=== PATIENT | female | born 1990 | race Caucasian/White ===

== ENCOUNTER 2016-08-25 19:21 | Emergency (ER) | payer OTHER ==
[~2016-08-25] VITALS: Ht 154.9 cm; Wt 70.3 kg
--- NOTE | ~2016-08-25 | EKG ---
[place] [address] [facility] [place] [employer] [place] [address] ELECTROCARDIOGRAM REPORT Name: TAI WOLFE Room #: [facility]#: [id number] Admission: 08/25/16 Attend Phys: Discharge: 08/25/16 Date of : 89 Report #: [id number] THIS REPORT FOR: //name// [facility] ED Test Date: 2016-08-25 Test Time: 19:41:18 Pat Name: TAI WOLFE Department: Room: Gender: F [employer]: LULU : 1990 Requested By: Albania Galvan Order Number: [id number] MD: Khang Matamoros Measurements Intervals [place] Rate: 73 P: 44 CA: 135 QRS: 60 QRSD: 104 T: 43 QT: 412 QTc: 454 Interpretive Statements Sinus rhythm RSR' in V1 or V2, right VCD No previous ECG available for comparison Electronically Signed On 08-26-2016 7:23:48 CDT by Khang Matamoros [email or web address] <ELECTRONICALLY SIGNED> By: Khang Matamoros MD, [facility] 08/26/16 0723 194 40 Khang Matamoros MD, FACC /EPI
[2016-08-25 20:51] LABS: ABSOLUTE NEUTROPHILS 4.7 thou/uL (1.4-8.2); BASOPHILS 0.7 % (0.0-2.0); EOSINOPHILS 1.1 % (0.0-3.0); HEMATOCRIT 41.6 % (37.0-47.0); HEMOGLOBIN 14.5 gm/dL (12.0-15.0); LYMPHOCYTES 39.8 % (24.0-44.0); MCH 31.2 pg (26.0-34.0); MCHC 34.9 g/dL (28.0-37.0); MCV 89.4 fL (80.0-100.0); MONOCYTES 7.5 % (1.0-8.0); PLATELET COUNT 293 thou/uL (150-400); POLYS 50.9 % (36.0-66.0); RBC 4.65 mil/uL (4.20-5.00); RDW 12.5 % (10.5-14.5); WBC 9.2 thou/uL (4.0-11.0)
[2016-08-25 20:58] LABS: MANUAL DIFF NO
[2016-08-25 20:59] LABS: ANION GAP 12 mmol/L (7-16); BUN 11 mg/dL (7-18); CHLORIDE 103 mmol/L (98-107); CO2 23 mmol/L (21-32); CREATININE 0.9 mg/dL (0.6-1.0); GLUCOSE 113 mg/dL (74-106); POTASSIUM 3.5 mmol/L (3.5-5.1); SODIUM 138 mmol/L (136-145)
[2016-08-25 21:17] LABS: ALKALINE PHOSPHATASE 58 U/L (46-116); DIRECT BILIRUBIN < 0.1 mg/dL (<0.1-0.3); SGOT 21 U/L (15-37); SGPT 20 U/L (30-65); TOTAL BILIRUBIN 0.4 mg/dL (<0.1-1.0); TOTAL PROTEIN 7.3 g/dL (6.4-8.2)
[2016-08-25 21:48] VITALS: BP 119/68
== END 2016-08-25 21:50 | disposition home or self-care (01) ==
LOC: ER 19:21
PROVIDERS: Emergency Medicine
DX: R42 Dizziness and giddiness (principal); F41.9 Anxiety disorder, unspecified